=== PATIENT | male | born 1945 | race Caucasian/White ===

== ENCOUNTER 2019-01-31 11:40 | Inpatient (IN) | payer MEDICARE, MEDICAID ==
[~2019-01-31] VITALS: Ht 170.2 cm; Wt 60.0 kg
[~2019-01-31 11:40] MED LIST: ATOR10TA PO; HCTZ25T PO
[2019-01-31 12:11] LABS: BASOPHILS % (AUTO) 0.3 % (0-1); EOSINOPHILS # (AUTO) 0.1 X10'3 (0-0.9); EOSINOPHILS % (AUTO) 2.3 % (0-6); HEMATOCRIT 39.7 % (42.0-52.0); HEMOGLOBIN 13.7 g/dl (14.0-17.9); LYMPHOCYTES # (AUTO) 1.2 X10'3 (1.1-4.8); LYMPHOCYTES % (AUTO) 20.1 % (21-51); MEAN CORPUSCULAR HEMOGLOBIN 32.6 PG (27.0-31.0); MEAN CORPUSCULAR HGB CONC 34.6 g/dL (33.0-36.5); MEAN CORPUSCULAR VOLUME 94.3 FL (78-98); MEAN PLATELET VOLUME 6.5 FL (7.4-10.4); MONOCYTES # (AUTO) 0.6 X10'3 (0-0.9); MONOCYTES % (AUTO) 10.7 % (2-12); NEUTROPHILS % (AUTO) 66.6 % (42-75); PLATELET COUNT 336 X10'3 (140-440); RED BLOOD COUNT 4.22 X10'6 (4.70-6.10); RED CELL DISTRIBUTION WIDTH 12.6 % (11.5-14.5)
[2019-01-31 12:22] LABS: PARTIAL THROMBOPLASTIN TIME 29 SECONDS (22-32)
[2019-01-31 12:25] LABS: ALANINE AMINOTRANSFERASE 27 U/L (12-78); ALBUMIN/GLOBULIN RATIO 1.2 (1.1-1.5); ALKALINE PHOSPHATASE 90 IU/L (46-116); ANION GAP 7 (8-16); ASPARTATE AMINO TRANSFERASE 17 U/L (10-37); BILIRUBIN,TOTAL 0.6 MG/DL (0.1-1.0); BLOOD UREA NITROGEN 11 MG/DL (7-18); BUN/CREATININE RATIO 13.6 (5.4-32.0); CHLORIDE 103 MMOL/L (99-107); CREATININE 0.81 MG/DL (0.60-1.10); GLUCOSE 109 MG/DL (70-104); POTASSIUM 4.6 MMOL/L (3.5-5.1); SODIUM 139 MMOL/L (135-145); TOTAL CARBON DIOXIDE 28.6 MMOL/L (24-32); TOTAL PROTEIN 7.4 G/DL (6.4-8.2); eGFR > 90 ML/MIN
[2019-01-31 12:28] LABS: TROPONIN I < 0.04 NG/ML (0.0-0.05)
[2019-01-31] MEDS ORDERED: FLO0.4C PO (13:25)
[2019-01-31] MEDS ORDERED: aspirin 81mg tab.chew PO ONE (13:30)
[2019-01-31] MEDS: normal saline 1000ml 1,000 ML IV SCH ×2 (13:51→23:51)
[2019-01-31] MEDS ORDERED: ondansetron/PF 4mg/2ml inj IV PRN (13:55)
[2019-01-31] MEDS ORDERED: mag hydrox/Alum hydrox/simeth 30ml oral suspension PO PRN (13:55)
[2019-01-31] MEDS ORDERED: magnesium 2GM in 50ml NS 50 ML IV PRN (13:55)
[2019-01-31] MEDS ORDERED: potassium Cl 20 mEq SR tablet PO PRN ×2 (13:55)
[2019-01-31] MEDS ORDERED: magnesium 4gm in 100ml NS 100 ML IV PRN (13:55)
[2019-01-31] MEDS ORDERED: acetaminophen 325mg tablet PO PRN ×2 (13:55)
[2019-01-31] MEDS ORDERED: magnesium Cl slow-release 64mg tablet PO PRN (13:55)
[2019-01-31] MEDS ORDERED: HYDROcodone/acetaminophen 5mg/325mg tablet PO PRN (13:55)
[2019-01-31] MEDS ORDERED: potassium CL 10mEq/100ml bag 100 ML IV PRN ×2 (13:55)
[2019-01-31] MEDS ORDERED: morphine 2 MG/ML inj. syringe IV PRN (13:55)
[2019-01-31 16:00] VITALS: BP 165/64
[2019-01-31 18:00] VITALS: BP 148/60
[2019-01-31] MEDS: docusate sod 100mg capsule PO SCH (19:43)
[2019-01-31] MEDS: heparin, porcine 5000 units/ml vial SQ SCH (20:08)
[2019-01-31] MEDS ORDERED: pravastatin 10mg tablet PO SCH (21:00)
[2019-01-31] MEDS ORDERED: atorvastatin 10mg tablet PO SCH (21:00)
[2019-01-31] MEDS ORDERED: temazepam 15mg capsule PO PRN (21:00)
[2019-02-01] VITALS: BP 146/62
[2019-02-01] MEDS: normal saline 1000ml 1,000 ML IV SCH (03:00)
[2019-02-01 04:00] VITALS: BP 143/64
[2019-02-01 05:58] LABS: BASOPHILS % (AUTO) 0.3 % (0-1); EOSINOPHILS # (AUTO) 0.2 X10'3 (0-0.9); EOSINOPHILS % (AUTO) 2.4 % (0-6); HEMATOCRIT 37.5 % (42.0-52.0); HEMOGLOBIN 12.7 g/dl (14.0-17.9); LYMPHOCYTES # (AUTO) 1.3 X10'3 (1.1-4.8); LYMPHOCYTES % (AUTO) 20.4 % (21-51); MEAN CORPUSCULAR HEMOGLOBIN 32.3 PG (27.0-31.0); MEAN CORPUSCULAR HGB CONC 33.9 g/dL (33.0-36.5); MEAN CORPUSCULAR VOLUME 95.2 FL (78-98); MEAN PLATELET VOLUME 7.1 FL (7.4-10.4); MONOCYTES # (AUTO) 0.8 X10'3 (0-0.9); MONOCYTES % (AUTO) 11.8 % (2-12); NEUTROPHILS # (AUTO) 4.2 X10'3 (1.8-7.7); NEUTROPHILS % (AUTO) 65.1 % (42-75); PLATELET COUNT 300 X10'3 (140-440); RED BLOOD COUNT 3.94 X10'6 (4.70-6.10); RED CELL DISTRIBUTION WIDTH 12.5 % (11.5-14.5); WHITE BLOOD COUNT 6.4 X10'3 (4.5-11.0)
[2019-02-01 06:00] VITALS: BP 143/63
--- NOTE | 2019-02-01 06:09 | NUR ---
Problems reprioritized. Patient report given, questions answered & plan of care reviewed with ROSELIA Sands.
[2019-02-01 06:39] LABS: ALBUMIN 3.6 G/DL (3.4-5.0); ANION GAP 10 (8-16); BLOOD UREA NITROGEN 11 MG/DL (7-18); BUN/CREATININE RATIO 14.7 (5.4-32.0); CALCIUM 8.5 MG/DL (8.5-10.1); CHLORIDE 107 MMOL/L (99-107); CHOL/HDL RATIO 3.2 (0.00-4.99); CHOLESTEROL 154 MG/DL (0-200); CREATININE 0.75 MG/DL (0.60-1.10); GLUCOSE 88 MG/DL (70-104); HDL CHOLESTEROL 48 MG/DL (35-60); LDL CHOLESTEROL 98 MG/DL (50-100); MAGNESIUM 1.8 MG/DL (1.5-2.4); POTASSIUM 3.9 MMOL/L (3.5-5.1); SODIUM 142 MMOL/L (135-145); TOTAL CARBON DIOXIDE 25.5 MMOL/L (24-32); TRIGLYCERIDES 53 MG/DL (20-135); eGFR > 90 ML/MIN
--- NOTE | 2019-02-01 06:50 | NUR ---
pt states he stated with a mild cough and runny nose 3 days ago. Lung wade sound clear at this time Addendum: 02/01/19 at 0654 by Michelle Stratton RN Amended: Links added.
[2019-02-01] MEDS: docusate sod 100mg capsule PO SCH (08:00)
[2019-02-01] MEDS ORDERED: lisinopril 10 MG tablet PO SCH (08:00)
[2019-02-01] MEDS ORDERED: tamsulosin 0.4mg capsule PO SCH (08:00)
[2019-02-01] MEDS ORDERED: K and/or MAG REPLACEMENT MC SCH (08:00)
[2019-02-01] MEDS ORDERED: aspirin 81mg tablet.DR PO SCH (08:30)
[2019-02-01] MEDS: heparin, porcine 5000 units/ml vial SQ SCH (09:46)
[2019-02-01 12:18] VITALS: BP 117/57
[2019-02-01] MEDS ORDERED: ASPI-1071 PO (15:48)
[2019-02-01] MEDS ORDERED: ATOR10TA PO (15:48)
== END 2019-02-01 16:50 | disposition home or self-care (01) | DRG 69 ==
LOC: ER 11:40 → ORTHO 4S 14:59
PROVIDERS: ADMIT Internal Medicine; ATTEND Family Medicine
DX: G45.9 Transient cerebral ischemic attack, unspecified (principal); C61 Malignant neoplasm of prostate; D64.9 Anemia, unspecified; E78.00 Pure hypercholesterolemia, unspecified; E78.5 Hyperlipidemia, unspecified; F12.90 Cannabis use, unspecified, uncomplicated; Z60.2 Problems related to living alone; R00.1 Bradycardia, unspecified; I10 Essential (primary) hypertension; M81.0 Age-related osteoporosis without current pathological fracture; N40.0 Benign prostatic hyperplasia without lower urinary tract symptoms; Z79.82 Long term (current) use of aspirin; Z79.899 Other long term (current) drug therapy
CPT/HCPCS: 36415; 70450; 70544; 70551; 71045; 80048; 80053; 80061; 83735; 84484; 85025; 85610; 85730; 87081; 93005; 93306; 93880; 97116; 97161; 97530; 99285; G0378; J1644; J7030